=== PATIENT | female | born 1955 | race Two or more races ===

== ENCOUNTER 2021-05-12 13:48 | Emergency (ER) | payer MEDICARE, OTHER ==
[~2021-05-12] VITALS: Ht 165.1 cm; Wt 74.8 kg
[2021-05-12 14:35] VITALS: BP 156/88
--- NOTE | 2021-05-12 15:39 | NUR ---
called to room in, no answer
--- NOTE | 2021-05-12 16:24 | NUR ---
CALLED PT IN [facility], NO ANSWER
--- NOTE | 2021-05-12 17:00 | NUR ---
PT CALLED MULTIPLE TIMES IN [facility], NO ANSWER.
== END 2021-05-12 17:09 | disposition left against medical advice (07) ==
LOC: ER 14:00
DX: Z53.21 Procedure and treatment not carried out due to patient leaving prior to being seen by health care provider (principal)

== ENCOUNTER 2024-01-31 00:11 | Emergency (ER) | payer MEDICARE, OTHER ==
[~2024-01-31] VITALS: Ht 162.6 cm; Wt 77.1 kg
[2024-01-31 01:08] LABS: BASOPHILS % (AUTO) 0.2 % (0.0-2.0); EOSINOPHILS % (AUTO) 0.5 % (0.0-6.0); HEMATOCRIT 39 % (33-45); HEMOGLOBIN 13.4 g/dL (11.5-14.8); LYMPHOCYTES # (AUTO) 0.6 K/uL (0.8-4.8); MEAN CORPUSCULAR HEMOGLOBIN 28 PG (26.0-33.0); MEAN CORPUSCULAR HGB CONC 34 g/dl (31.0-36.0); MEAN CORPUSCULAR VOLUME 83 fL (82-100); MONOCYTES # (AUTO) 0.7 K/uL (0.1-1.30); MONOCYTES % (AUTO) 9.4 % (2.0-12.0); NEUTROPHILS # (AUTO) 5.6 K/uL (1.8-8.9); NEUTROPHILS % (AUTO) 80.9 % (43.0-81.0); PLATELET COUNT (AUTO) 231 K/uL (150-450); RED BLOOD CELL COUNT(AUTO) 4.72 MIL/uL (4.0-5.2); RED CELL DISTRIBUTION WIDTH 13.2 % (11.5-15.0)
[2024-01-31 01:20] LABS: ALANINE AMINOTRANSFERASE 20 U/L (12-78); ALBUMIN 3.6 g/dL (3.4-5.0); ALKALINE PHOSPHATASE 104 U/L (46-116); ASPARTATE AMINOTRANSFERASE 20 U/L (15-37); BILIRUBIN,DIRECT 0.2 mg/dL (0.0-0.2); BILIRUBIN,TOTAL 0.6 mg/dL (0.2-1.0); CARBON DIOXIDE 29 mmol/L (21-32); CHLORIDE 101 mmol/L (98-107); CREATININE 0.6 mg/dL (0.6-1.3); GLUCOSE 157 mg/dL (74-106); LIPASE 41 U/L (16-77); POTASSIUM 3.5 mmol/L (3.5-5.1); SODIUM SERUM 137 mmol/L (136-145); UREA NITROGEN, BLOOD 12 mg/dL (7-18)
[2024-01-31 01:27] LABS: CALCIUM, SERUM 9.4 mg/dL (8.5-10.1)
[2024-01-31] MEDS: IV NS 0.9% 1,000 ML BAG IV ONE (01:42)
[2024-01-31] MEDS ORDERED: ONDA4TAB5 PO (01:47)
[2024-01-31 01:53] VITALS: BP 150/90; TEMP 99.5; O2SAT 98
== END 2024-01-31 01:53 | disposition home or self-care (01) ==
LOC: ER 01:28
DX: R11.2 Nausea with vomiting, unspecified (principal); R19.7 Diarrhea, unspecified; I10 Essential (primary) hypertension; Z88.1 Allergy status to other antibiotic agents
CPT/HCPCS: 36415; 80048-TC; 80076-TC; 83690-TC; 84484-TC; 85025-TC

== ENCOUNTER 2024-04-11 11:15 | Emergency (ER) | payer MEDICARE, MEDICAID ==
[~2024-04-11] VITALS: Ht 162.6 cm; Wt 81.6 kg
[~2024-04-11 11:15] MED LIST: ONDA4TAB5 PO
[2024-04-11] MEDS ORDERED: dexaMETHasone SOD PHOSPHATE 0 ML ONE (11:51)
[2024-04-11] MEDS ORDERED: diphenhydrAMINE HCL 50 MG/ML VIAL ONE (11:51)
[2024-04-11] MEDS ORDERED: ACETAMINOPHEN ES 500 MG TABLET ONE (11:52)
[2024-04-11] MEDS ORDERED: METOCLOPRAMIDE HCL 10 MG/2 ML VIAL ONE (11:52)
[2024-04-11] MEDS: IV NS 0.9% 1,000 ML BAG IV ONE (12:00)
[2024-04-11] MEDS: ACETAMINOPHEN ES 500 MG TABLET PO ONE (12:00)
[2024-04-11] MEDS: METOCLOPRAMIDE HCL 10 MG/2 ML VIAL IV ONE (12:21)
[2024-04-11] MEDS: diphenhydrAMINE HCL 50 MG/ML VIAL IV ONE (12:22)
[2024-04-11] MEDS: dexaMETHasone SOD PHOSPHATE 10 MG/ML VIAL IV ONE (12:22)
[2024-04-11 12:38] LABS: CREATININE 0.7 mg/dL (0.6-1.3)
[2024-04-11 12:44] LABS: BASOPHILS % (AUTO) 0.7 % (0.0-2.0); EOSINOPHILS % (AUTO) 0.8 % (0.0-6.0); HEMATOCRIT 40 % (33-45); HEMOGLOBIN 13.3 g/dL (11.5-14.8); MEAN CORPUSCULAR HEMOGLOBIN 27 PG (26.0-33.0); MEAN CORPUSCULAR HGB CONC 34 g/dl (31.0-36.0); MEAN CORPUSCULAR VOLUME 80 fL (82-100); MONOCYTES # (AUTO) 0.4 K/uL (0.1-1.30); MONOCYTES % (AUTO) 7.3 % (2.0-12.0); NEUTROPHILS # (AUTO) 3.4 K/uL (1.8-8.9); NEUTROPHILS % (AUTO) 57.2 % (43.0-81.0); PLATELET COUNT (AUTO) 233 K/uL (150-450); RED BLOOD CELL COUNT(AUTO) 4.97 MIL/uL (4.0-5.2); RED CELL DISTRIBUTION WIDTH 13.7 % (11.5-15.0); WHITE BLOOD COUNT (AUTO) 5.9 K/uL (4.3-11.0)
[2024-04-11 12:54] LABS: APPEARANCE,URINE CLEAR (CLEAR); BILIRUBIN,URINE NEGATIVE (NEGATIVE); BLOOD, URINE TRACE-INTA Ery/uL (NEGATIVE); COLOR,URINE OTHER (YELLOW); KETONES,URINE NEGATIVE (NEGATIVE); LEUKOCYTE ESTERASE ,URINE NEGATIVE (NEGATIVE); NITRITE, URINE NEGATIVE (NEGATIVE); PH,URINE 5.5 (5.0-8.0); PROTEIN,URINE NEGATIVE (NEGATIVE); UGLUCOSE 3+ mg/dL (NEGATIVE); UROBILINOGEN,URINE 0.2 EU/dL (0.2)
[2024-04-11] MEDS ORDERED: CT SWABBABLE VALVE TRANS SET 1 EA INFUS.SET MC ONE (13:00)
[2024-04-11] MEDS ORDERED: IV NS 0.9% 250 ML IV ONE (13:00)
[2024-04-11] MEDS ORDERED: IOHEXOL-350 100 ML VIAL IV ONE ×2 (13:00)
[2024-04-11 13:19] LABS: ADD URINE CULTURE NO; BACTERIA,URINE Rare /HPF (None Seen); RBC,URINE 0-2 /HPF (0-2); SQUAMOUS EPITHELIAL CELL,UR 0-2 /HPF (None Seen); WBC,URINE 0-2 /HPF (0-3)
[2024-04-11] MEDS ORDERED: IBUP-1955 PO (14:37)
[2024-04-11 14:48] VITALS: BP 150/89; TEMP 98.6; O2SAT 96
== END 2024-04-11 14:49 | disposition home or self-care (01) ==
LOC: ER 11:26
DX: R51.9 Headache, unspecified (principal); E78.5 Hyperlipidemia, unspecified; I11.9 Hypertensive heart disease without heart failure; Z88.1 Allergy status to other antibiotic agents
CPT/HCPCS: 99285; 70498; 96360; 71045; 93005; 70496; 85025; 80048; 81001; 36415; 82962; J7030; J7050; Q9967 ×2; A4223; J1100; J1200; J2765